=== PATIENT | female | born 2000 | race Caucasian/White ===

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

== ENCOUNTER 2019-01-20 11:07 | Emergency (ER) | payer OTHER ==
[2019-01-20 11:46] LABS: #Eosinphils 0.1 thou/uL (0.0-0.7); #Lymphocytes 1.5 thou/uL (1.20-3.40); #Monocytes 0.5 thou/uL (0.11-0.59); #Neutrophils 4.4 thou/uL (1.40-6.50); %Basophils 0.1 % (0.0-1.0); %Eosinophils 1.1 % (0.0-10.0); %Lymphocytes 22.8 % (28.0-48.0); %Monocytes 7.1 % (0.0-4.0); %Neutrophils 68.9 % (31.0-61.0); Hemoglobin 12.6 g/dL (12.0-16.0); Mean Corpuscular HGB CONC 33.7 g/dL (32.0-36.0); Mean Corpuscular Hemoglobin 29.4 pg (25.0-35.0); Mean Corpuscular Volume 87.4 fL (78.0-98.0); Mean Platelet Volume 10.9 fL (7.4-10.4); Platelet Count 126 thou/uL (130-400); RBC Distribution Width 11.7 % (11.5-14.5); Red Blood Cell (RBC) Count 4.29 mill/uL (4.00-5.20); White Blood Cell (WBC) Count 6.4 thou/uL (4.8-10.8)
[2019-01-20 12:09] LABS: ALT (SGPT) 9 U/L (8-55); AST (SGOT) 15 U/L (5-30); Albumin 4.3 g/dL (3.5-5.0); Alkaline Phosphatase 72 U/L (40-100); Anion Gap 11 mmol/L (10-20); BUN (Urea Nitrogen) 11 mg/dL (8.4-21.0); Bilirubin, Total 0.7 mg/dL (0.2-1.2); Calc. Creatinine Clearance 0 mL/min (70-130); Calcium 9.3 mg/dL (7.8-10.44); Carbon Dioxide 21 mmol/L (22-29); Chloride 109 mmol/L (98-107); Estimated GFR-MDRD 87; Globulin 2.5 g/dL (2.4-3.5); Glucose 82 mg/dL (70-105); Protein, Total 6.8 g/dL (6.0-8.3); Sodium 137 mmol/L (136-145)
[2019-01-20 12:12] LABS: Bilirubin Negative (Negative); Blood, Urine Negative (Negative); Clarity Clear (Clear); Glucose, Urine (Dipstick) Normal (Negative); Leukocyte Negative Leu/uL (Negative); Nitrite Negative (Negative); Protein, Urine (Dipstick) 10 mg/dL (Neg-Trace); Urobilinogen Normal mg/dL (Less than 2)
[2019-01-20 12:13] LABS: Pregnancy Test - Urine (BHCG) POSITIVE (Negative); Pregu Control Background? CLEAR/WHITE (CLR/WHITE); Pregu Control Bar Appear? YES (CONTROL BAR); Specific Gravity 1.023 (1.002-1.036)
[2019-01-20 14:03] LABS: BHCG - Serum POSITIVE (NEGATIVE); Pregs Control Background? CLEAR/WHITE (CLR/WHITE); Pregs Control Bar Appear? YES (CONTROL BAR)
--- NOTE | 2019-01-20 15:09 | ULT ---
First trimester obstetrical ultrasound INDICATION: Abdominal cramping FINDINGS: There is a single intrauterine gestational sac containing a yolk sac and pole. The cr own-rump length measured 2.4 mm giving estimated gestational age of 5 weeks and 6 days. The mean sac diameter was 0.85 cm giving estimated gestational age of 5 weeks 5 days. The average gestational age by ultrasound is 5 weeks and 6 days with estimated due date September 16, 2019. Clinical age is 6 weeks and 0 days with estimated due date of 09/15/2019. No heart rate was demonstrated. No subch orionic hemorrhage is noted. No free fluid is noted. The left ovary measures 2.0 x 2.5 x 1.3 cm. The right ovary measures 2.9 x 1.4 x 2.1 cm. There is nor mal flow to both ovaries. IMPRESSION: Intrauterine gestational sac containing a pole and yolk sac. No heart tones w ere demonstrated; however, this is likely related to the early gestation. Viability is not confirmed on this examination. Continued clinical and sonographic follow-up is recommended.
[2019-01-23 21:22] LABS: Chlamydia by PCR Not Detected (NotDetected); GC by PCR Not Detected (NotDetected)
== END 2019-01-20 15:33 | disposition home or self-care (01) ==
LOC: ERS 11:07
DX: O23.591 Infection of other part of genital tract in pregnancy, first trimester (principal); B96.89 Other specified bacterial agents as the cause of diseases classified elsewhere; Z3A.01 Less than 8 weeks gestation of pregnancy
CPT/HCPCS: 36415; 76856; 80053; 81003; 81025; 84702; 84703; 85025; 86900; 86901; 87480; 87491; 87510; 87591; 87660

== ENCOUNTER 2019-01-22 09:38 | Emergency (ER) | payer MEDICAID, OTHER | END 2019-01-22 10:55 | disposition home or self-care (01) | LOC: ERS 09:38 | DX: O26.891 Other specified pregnancy related conditions, first trimester (principal); Z3A.01 Less than 8 weeks gestation of pregnancy | CPT/HCPCS: 36415; 84702; 99282 ==

== ENCOUNTER 2019-03-11 14:43 | Emergency (ER) | payer MEDICAID, OTHER, SELFPAY | END 2019-03-11 15:23 | disposition home or self-care (01) | LOC: ERS 14:43 | DX: O98.511 Other viral diseases complicating pregnancy, first trimester (principal); B34.9 Viral infection, unspecified; Z3A.13 13 weeks gestation of pregnancy | CPT/HCPCS: 99283 ==

== ENCOUNTER 2019-03-14 20:39 | Emergency (ER) | payer SELFPAY ==
[2019-03-14 21:23] LABS: Bilirubin Negative (Negative); Blood, Urine Negative (Negative); Clarity Clear (Clear); Glucose, Urine (Dipstick) Normal (Negative); Leukocyte Negative Leu/uL (Negative); Nitrite Negative (Negative); Protein, Urine (Dipstick) Negative (Neg-Trace); Urobilinogen Normal mg/dL (Less than 2)
== END 2019-03-14 23:02 | disposition home or self-care (01) ==
LOC: ERS 20:39
DX: O99.511 Diseases of the respiratory system complicating pregnancy, first trimester (principal); J10.1 Influenza due to other identified influenza virus with other respiratory manifestations; Z3A.13 13 weeks gestation of pregnancy
CPT/HCPCS: 81003; 87804; 99283

== ENCOUNTER 2019-09-08 07:25 | Outpatient (CLI) | payer OTHER ==
[2019-09-09 12:17] LABS: SARS-CoV-2 MS2 Positive; SARS-CoV-2 N Gene Negative; SARS-CoV-2 S Gene Negative; SARS-CoV-2 orf1ab Negative
== END 2019-09-08 07:26 | disposition home or self-care (01) ==
LOC: SCSLAB 07:25
PROVIDERS: ATTEND Obstetrics & Gynecology
DX: Z01.812 Encounter for preprocedural laboratory examination (principal); Z11.59 Encounter for screening for other viral diseases
CPT/HCPCS: 87635; U0003

== ENCOUNTER 2019-09-10 23:21 | Day surgery (SDC) | payer OTHER ==
[2019-09-11 00:37] LABS: Amnisure Internal Control QC ACCEPTABLE (ACCEPTABLE); Amnisure Test No Membranes Rupture (No Rupture)
[2019-09-11] MEDS ORDERED: hydrALAZINE 20 MG/ML VIAL SLOW IVP PRN (00:51)
--- NOTE | 2019-09-11 08:21 | PRG ---
DATE OF SERVICE: 09/11/2019 TIME OF SERVICE: 003 PRESENTING COMPLAINT: Contractions. HISTORY OF PRESENT ILLNESS: Ms. Mays is a 19-year-old 2, para 0, at 39 and 5 weeks, who is scheduled for a Cytotec induction in 2 days. She presents complaining of contractions. She reports an active fetus. She denies rupture of membranes. OBSTETRICAL/GYNECOLOGIC HISTORY: The patient sees Dr. Ramiro Aragon at [facility]. Blood type O positive, antibody negative. Pap negative. Rubella immune. VDRL nonreactive. Hepatitis B, GC, chlamydia negative. PAST MEDICAL HISTORY: None. PAST SURGICAL HISTORY: Knee tumor removal. MEDICATIONS: vitamins. SOCIAL HISTORY: Denies tobacco, alcohol, or IV drug use. FAMILY HISTORY: Noncontributory. REVIEW OF SYSTEMS: Noncontributory. PHYSICAL EXAMINATION: GENERAL: White female, in no acute distress. VITAL SIGNS: Temperature 98.4, respirations 18, blood pressure 112/72. HEENT: Within normal limits. LUNGS: Clear to auscultation bilaterally. HEART: Regular rate and rhythm. ABDOMEN: Soft with indentable contractions. Fundal height 38. FHTs 140s. PELVIS: Vulva without lesions. Vagina without discharge. Cervix by RN exam is 1, 25, and -2, both upon presentation and an hour later with re-exam. EXTREMITIES: Without clubbing, cyanosis, or edema. monitoring was carried out which revealed contractions q.5 minutes. The heart rate tracing is reactive with a baseline of 140s to 150s, positive accelerations, no decelerations, category 1 tracing. IMPRESSION: Contractions without cervical change. No evidence of active labor. Reassuring heart rate tracing. PLAN: Discharge home. ER precautions. Keep scheduled followup with induction of labor. Return if spontaneous rupture of membranes occurs or contractions worsen. Job ID: [id number]
== END 2019-09-11 00:51 | disposition home or self-care (01) ==
LOC: L&D/OP 23:21
PROVIDERS: ATTEND Obstetrics & Gynecology
DX: O47.1 False labor at or after 37 completed weeks of gestation (principal); Z3A.39 39 weeks gestation of pregnancy
CPT/HCPCS: 84112; 99283

== ENCOUNTER 2019-09-12 16:57 | Inpatient (IN) | payer OTHER ==
[2019-09-12] MEDS ORDERED: Zolpidem Tartrate 5 MG TAB PO PRN (17:11)
[2019-09-12] MEDS ORDERED: Promethazine HCl 25 MG/ML VIAL IM PRN (17:11)
[2019-09-12] MEDS ORDERED: NS w/ Oxytocin 10 units 500 ML IV SCH (17:11)
[2019-09-12] MEDS ORDERED: Misoprostol 200 MCG TAB PR PRN (17:11)
[2019-09-12] MEDS ORDERED: NS / Oxytocin 40 units/1000ml 1,000 ML IV PRN (17:11)
[2019-09-12] MEDS ORDERED: HYDROcodone/Acetaminophen 5/325 mg Tablet PO PRN ×2 (17:11)
[2019-09-12] MEDS ORDERED: hydrALAZINE 20 MG/ML VIAL SLOW IVP PRN (17:11)
[2019-09-12] MEDS ORDERED: Ibuprofen 800 MG TAB PO PRN (17:11)
[2019-09-12] MEDS ORDERED: Acetaminophen 500 MG TAB PO PRN (17:11)
[2019-09-12] MEDS ORDERED: Lidocaine 1% (PF) 30 ML VIAL SC PRN (17:11)
[2019-09-12] MEDS ORDERED: Docusate 100 MG CAP PO PRN (17:11)
[2019-09-12] MEDS ORDERED: Diphenoxylate HCl/Atropine Tablet PO PRN ×2 (17:11)
[2019-09-12] MEDS ORDERED: Ondansetron PF 4 MG/2 ML Vial IVP PRN (17:11)
[2019-09-12] MEDS: Lactated Ringer's 1,000 ML IV SCH ×2 (17:30→21:00)
[2019-09-12 17:49] VITALS: BMI 28.3
[2019-09-12 18:01] LABS: Mean Corpuscular Hemoglobin 27.2 pg (25.0-35.0); Mean Corpuscular Volume 82.6 fL (78.0-98.0); Mean Platelet Volume 9.8 fL (7.4-10.4); Platelet Count 121 thou/uL (130-400); RBC Distribution Width 13.9 % (11.5-14.5); Red Blood Cell (RBC) Count 3.68 mill/uL (4.00-5.20); White Blood Cell (WBC) Count 16.8 thou/uL (4.8-10.8)
[2019-09-12 18:18] LABS: Amnisure Internal Control QC ACCEPTABLE (ACCEPTABLE); Amnisure Test No Membranes Rupture (No Rupture)
[2019-09-12 18:40] LABS: HBSAg Index 0.19 S/CO (0-0.99); Hep B Surf Ag Non-Reactive S/CO (NonReactive); Syphilis Antibody Nonreactive (Nonreactive); Syphilis Antibody Index 0.05 S/CO (<1.00 Non-Reactive)
[2019-09-13] MEDS: Misoprostol 100 MCG TAB VAG SCH ×6 (02:41→17:17)
[2019-09-13] MEDS ORDERED: Dextrose 5%-Lactated Ringers 1,000 ML IV SCH (03:00)
[2019-09-13] MEDS: NS w/ Oxytocin 10 units 500 ML IV SCH ×2 (07:16→18:45)
[2019-09-13] MEDS: Butorphanol Tartrate 1 MG/ML VIAL SLOW IVP PRN ×2 (08:28→09:55)
[2019-09-13] MEDS: Lactated Ringer's 1,000 ML IV SCH ×2 (10:26→18:45)
[2019-09-13] MEDS ORDERED: Fentanyl 4 mcg/Bup 0.1% Cadd 100 ML ONE (12:54)
[2019-09-13] MEDS ORDERED: Ondansetron PF 4 MG/2 ML Vial IVP PRN ×2 (13:54→16:43)
[2019-09-13] MEDS ORDERED: EPHEDRINE 25 MG/5 ML SYRINGE SLOW IVP PRN (13:54)
[2019-09-13] MEDS ORDERED: Naloxone HCl 0.4 mg/ml Vial IVP PRN ×2 (13:54)
[2019-09-13] MEDS ORDERED: Acetaminophen 325 MG TAB PO PRN (13:54)
[2019-09-13] MEDS ORDERED: diphenhydrAMINE 50 MG/ML VIAL IVP PRN (13:54)
[2019-09-13] MEDS ORDERED: Lactated Ringer's 500 ML IV PRN (13:54)
[2019-09-13] MEDS ORDERED: Promethazine HCl 25 MG/ML VIAL IM PRN (13:54)
[2019-09-13] MEDS ORDERED: Communication Order-Pharmacy FS SCH (14:00)
[2019-09-13] MEDS ORDERED: Fentanyl 4 mcg/Bupivacaine 0.1% Cassette 100 ML EPIDURAL SCH (14:00)
[2019-09-13] MEDS: NS / Oxytocin 40 units/1000ml 1,000 ML IV SCH ×2 (15:56→18:06)
[2019-09-13] MEDS ORDERED: Milk Of Magnesia 30 ML UDCUP PO PRN (16:43)
[2019-09-13] MEDS ORDERED: hydrALAZINE 20 MG/ML VIAL SLOW IVP PRN (16:43)
[2019-09-13] MEDS ORDERED: Misoprostol 200 MCG TAB VAG PRN (16:43)
[2019-09-13] MEDS ORDERED: Benzocaine-Menthol 82.5 ML CAN TOP PRN (16:43)
[2019-09-13] MEDS ORDERED: Adacel (T-DAP) 0.5 ML SYRINGE IM ONE (16:43)
[2019-09-13] MEDS ORDERED: Preparation H Ointment 28 GM TUBE PR PRN (16:43)
[2019-09-13] MEDS ORDERED: Bisacodyl 10 MG SUPP PR PRN (16:43)
[2019-09-13] MEDS ORDERED: diphenhydrAMINE 25 MG CAP PO PRN (16:43)
[2019-09-13] MEDS ORDERED: Zolpidem Tartrate 5 MG TAB PO PRN (16:43)
[2019-09-13] MEDS ORDERED: HYDROcodone/Acetaminophen 5/325 mg Tablet PO PRN ×2 (16:43)
[2019-09-13] MEDS: Ibuprofen 800 MG TAB PO SCH (18:06)
[2019-09-13] MEDS: Ferrous Sulfate 325 MG TAB PO SCH (18:44)
[2019-09-13] MEDS: Docusate Calcium (SURFAK) 240 MG CAP PO SCH (20:34)
[2019-09-14] MEDS: Ibuprofen 800 MG TAB PO SCH ×3 (05:30→21:46)
[2019-09-14 06:44] LABS: Hemoglobin 8.9 g/dL (12.0-16.0)
[2019-09-14] MEDS ORDERED: Bupivacaine/Epinephrine 0.25% 30 ML VIAL ONE (09:13)
[2019-09-14] MEDS: Ferrous Sulfate 325 MG TAB PO SCH ×2 (10:12→16:53)
[2019-09-14] MEDS: Docusate Calcium (SURFAK) 240 MG CAP PO SCH ×2 (10:12→21:46)
[2019-09-14 23:10] VITALS: TEMP 97.9
[2019-09-15] MEDS: Ibuprofen 800 MG TAB PO SCH (05:14)
[2019-09-15 07:45] VITALS: BP 101/58
[2019-09-15] MEDS: Docusate Calcium (SURFAK) 240 MG CAP PO SCH (08:28)
[2019-09-15] MEDS: Ferrous Sulfate 325 MG TAB PO SCH (08:28)
--- NOTE | 2019-09-18 23:53 | PQF ---
CLINICAL DOCUMENTATION CLARIFICATION FORM: Dear : Ramiro Aragon Date / Time: 09/18/192350 Please exercise your independent, professional judgment in responding to the clarification form. Clinical indicators are provided on the bottom of this form for your review Please check appropriate box(es): [ X] Acute blood loss anemia [ ] Post-op anemia related to acute blood loss [ ] Chronic Anemia related to [ X ] Other diagnosis Anemia assoc with pregnancy [ ] Unable to determine In addition, please specify: Present on Admission (POA): [x ] Yes [ ] No [ ] Unable to determine Physician Signature: Date/Time: For continuity of documentation, please document condition throughout progress notes and discharge summary. Thank You. To be completed by CDI/Coding staff for physician review: Present Clinical Indicators - Signs / Symptoms / Labs Results and Location in Medical Record [ X ] RBC 3.68, hgb 10.0, hct 30.4 Laboratory Hematology 09/11 [ X ] Hgb 8.9, Hct 27.5 Laboratory Hematology 09/13 [ X ] Temp 98.7, Pulse 107, Resp 20, BP 107/55 Vital signs 09/12 [ X ] Estimated blood loss: 522 L&D summary 09/12 Present Risk Factors Results and Location in Medical Record [ X ] Hx of Anemia H&P p1 09/11 [ X ] 39 weeks of IUP H&P p1 09/11 [ X ] s/p L&D summary 09/12 [ X ] 2nd degree perineal laceration L&D summary 09/12 Present Treatments Results and Location in Medical Record [ X ] Ferrous Sulfate 325 mg oral MAY 12 [ X ] IV Lactated Ringers 1L MAY 12 [ X ] Series of Hct and Hgb Laboratory Hematology 09/11 CDS/Ride Attendant Signature: Earnestine Ly Laughlin #: [phone] Date/Time: 09/18/192350 This is a permanent part of the Medical Record [facility]
== END 2019-09-15 13:10 | disposition home or self-care (01) | DRG 805 ==
LOC: L&D 16:57 → 3SW 09-13 19:21
PROVIDERS: ADMIT Obstetrics & Gynecology; ATTEND Obstetrics & Gynecology
PROC: 3E0P7VZ Introduction of Hormone into Female Reproductive, Via Natural or Artificial Opening (ICD-10-PCS; 2019-09-12)
PROC: 10D07Z6 Extraction of Products of Conception, Vacuum, Via Natural or Artificial Opening (ICD-10-PCS; principal; 2019-09-13)
PROC: 0W8NXZZ Division of Female Perineum, External Approach (ICD-10-PCS; 2019-09-13)
DX: O76 Abnormality in fetal heart rate and rhythm complicating labor and delivery (principal); O41.1230 Chorioamnionitis, third trimester, not applicable or unspecified; Z37.0 Single live birth; D62 Acute posthemorrhagic anemia; Z3A.39 39 weeks gestation of pregnancy; Z20.828 Contact with and (suspected) exposure to other viral communicable diseases; O99.02 Anemia complicating childbirth
CPT/HCPCS: 36415; 51702; 84112; 85014; 85018; 85027; 86780; 86850; 86900; 86901; 87340; 88307; J0595; J2405; J2590; U0002

== ENCOUNTER 2019-10-02 14:33 | Outpatient (CLI) | payer OTHER ==
--- NOTE | 2019-10-02 15:19 | RAD ---
LEFT FEMUR 2 VIEWS: Date: 10/02/2019 HISTORY: Fibroxanthoma. FINDINGS: Comparison made with exam of 10/28/2018. The eccentric lucency with well-defined circumscribed sclerotic margins at the lateral metaphysis of the distal left femur is stable and compatible with a fibroxanthoma. IMPRESSION: Stable distal left femoral fibroxanthoma. POS: OFF
== END 2019-10-02 14:34 | disposition home or self-care (01) ==
LOC: BICRAD 14:33
PROVIDERS: ATTEND Family Medicine
DX: D16.22 Benign neoplasm of long bones of left lower limb (principal)